=== PATIENT | male | born 1955 | race African-American/Black ===

== ENCOUNTER 2019-11-29 19:46 | Emergency (ER) | payer MEDICARE, BC ==
[~2019-11-29] VITALS: Ht 177.8 cm; Wt 95.0 kg
[~2019-11-29 19:46] MED LIST: AMOXICILLIN/CL875 MG OR; CIPRODEX1 ML AD; GLUCOPHAGE500 M1 OR; MOTRIN800 MG PO
[2019-11-29] MEDS ORDERED: TAMSULOSIN HCL0.4 MG PO (20:06)
[2019-11-29 20:55] LABS: HEMATOCRIT 40.8 % (39.0-50.0); HEMOGLOBIN 13.3 g/dl (14.0-18.0); IMMATURE GRANULOCYTES 0.2 % (0.0-5.0); MEAN CELL VOLUME 89.3 fL CALC (80.0-100.0); MEAN CORPUSCULAR HGB 29.1 pG CALC (26.0-32.0); MEAN CORPUSCULAR HGB CONC 32.6 g/dL CAL (32.0-36.0); NEUT# 3.62 thou/uL (1.82-7.42); RED BLOOD COUNT 4.57 mill/uL (4.70-6.10); RED CELL DISTRI WIDTH 14.8 % (11.5-15.5)
[2019-11-29 21:05] LABS: CREATININE 1.5 mg/dL (0.7-1.3); POTASSIUM 4.5 mmol/l (3.5-5.1)
[2019-11-29 21:22] LABS: ALBUMIN 4.5 g/dL (3.2-5.0); BILIRUBIN, TOTAL 1.1 mg/dL (0.0-1.4)
[2019-11-29 22:36] LABS: CPK 230 u/l (52-200)
[2019-11-29 22:45] LABS: MYOGLOBIN 241 ng/mL (0 - 121)
[2019-11-29 22:52] VITALS: BP 134/80
[2019-11-29 23:07] LABS: URINE BILIRUBIN - DIPSTICK NEGATIVE (NEGATIVE); URINE BLOOD DIPSTICK NEGATIVE (NEGATIVE); URINE COLOR YELLOW; URINE GLUCOSE - DIPSTICK NEGATIVE (NEGATIVE); URINE KETONE TRACE mg/dL (NEGATIVE); URINE LEUK ESTERASE NEGATIVE (NEGATIVE); URINE NITRITE - DIPSTICK NEGATIVE (Negative); URINE PROTEIN - DIPSTICK NEGATIVE (NEG-TRACE); URINE SPECIFIC GRAVITY >=1.030; URINE UROBILINOGEN - DIPSTICK 0.2 E.U./dL (0.2)
== END 2019-11-29 23:45 | disposition home or self-care (01) | DRG 923 ==
LOC: ED 19:46
PROVIDERS: Family Medicine
DX: T67.5XXA Heat exhaustion, unspecified, initial encounter (principal); M62.82 Rhabdomyolysis; E11.9 Type 2 diabetes mellitus without complications; X30.XXXA Exposure to excessive natural heat, initial encounter; Y93.89 Activity, other specified; Y92.008 Other place in unspecified non-institutional (private) residence as the place of occurrence of the external cause; Z79.84 Long term (current) use of oral hypoglycemic drugs

== ENCOUNTER 2022-01-16 13:22 | Emergency (ER) | payer MEDICARE ==
[~2022-01-16] VITALS: Ht 177.8 cm; Wt 93.0 kg
[~2022-01-16 13:22] MED LIST changes: +TAMSULOSIN HCL0.4 MG PO
[2022-01-16] MEDS ORDERED: CEPHALEXIN500 M1 PO (17:18)
[2022-01-16] MEDS ORDERED: FLEXERIL5 M1 PO (17:25)
[2022-01-16 17:49] VITALS: BP 138/85
== END 2022-01-16 17:54 | disposition home or self-care (01) ==
LOC: ED 13:22
PROC: 0HQKXZZ Repair Right Lower Leg Skin, External Approach (ICD-10-PCS; principal; 2022-01-16)
DX: S81.011A Laceration without foreign body, right knee, initial encounter (principal); M54.2 Cervicalgia; W29.3XXA Contact with powered garden and outdoor hand tools and machinery, initial encounter; W11.XXXA Fall on and from ladder, initial encounter; Y92.009 Unspecified place in unspecified non-institutional (private) residence as the place of occurrence of the external cause